=== PATIENT | male | born 1940 | race Caucasian/White ===

== ENCOUNTER 2024-11-05 13:40 | Outpatient (CLI) | payer MEDICARE, SELFPAY ==
--- OUTSIDE RECORDS SUMMARY | 2024-11-05 13:43 | XMS_ITS | Encounter Summary ---
Author Organization [facility] Address [id number] [place] [address] Care Team Providers Care General Dentist Name Role Phone Unavailable Primary Care Provider Unavailabl e Encounter Details Date Type Department Care Team (Late st Contact Info) Description 11/05/2024 1:00 PM CDT Office Visit [facility] Oncology and Hematology - [place] [address] [facility] [address] [place] [address] Teddy Foy MD [address] [facility] [address] [place] [address] Lymphocytosis (Primary Dx) Social History Tobacco Use Types Packs/Day Years Used Date Smoking Tobacco: Never Smokeless Tobacco: Never Tobacco Cessation:Counseling Given: Not Answered Alcohol Use Standard Drinks/Week Comments Yes 0 (1 standard drink = 0.6 oz pur e alcohol) occasional Sex and Gender Information Value Date Recorded Sex Assigned at Not on file Legal Sex Male 1:36 PM CDT Gender Identity Not on file Sexual Orientation Not on file documented as of this encounter Last Filed Vital Signs Vital Sign Reading Time Taken Comments Blood Pressure 116/69 11/05/2024 1:03 PM CDT Pulse 58 11/05/2024 1:03 PM CDT Temperature 36.8 C (98.3 F) 11/05/2024 1:03 PM CDT Respiratory Rate 15 11/05/2024 1:03 PM CDT Oxygen Saturation 91% 11/05/2024 1:03 PM CDT Inhaled Oxygen Concentration - - Weight 117.8 kg (259 lb 12.8 oz) 11/05/2024 1:03 PM CDT Height 177.8 cm (5' 10) 11/05/2024 1:03 PM CDT Body Mass Index 37.28 11/05/2024 1:03 PM CDT documented in this encounter Plan of Treatment Upcoming Encounters Date Type Department Care Team (Late st Contact Info) Description 11/18/2024 4:30 PM CDT Telephone Check Up [facility] Oncology and Hematology - [place] [address] [facility] [address] [place] [address] Teddy Foy MD [address] [facility] [address] [place] [address] Scheduled Orders Name Type Priority Associated Diagnoses Orde r Schedule CBC WITH DIFFERENTIAL Lab Stat Lymphocytosis Expected: 11/05/2024, Expires: 11/05/2025 COMPREHENSIVE METABOLIC PANEL Lab Stat Lymphocytosis Expected: 11/05/2024, Expires: 11/05/2025 FLOW CYTOMETRY PANEL Lab Routine Lymphocytosis Expected: 11/05/2024, Expires: 11/05/2025 LACTATE DEHYDROGENASE Lab Routine Lymphocytosis Expected: 11/05/2024, Expires: 11/05/2025 documented as of this encounter Visit Diagnoses Diagnosis Lymphocytosis- Primary Lymphocytosis (symptomatic) documented in this encounter
--- OUTSIDE RECORDS SUMMARY | 2024-11-05 13:43 | XMS_ITS | Clinical Summary ---
Author Organization [facility] [address] [place] [address] Care Team Providers Care Ammunition Supervisor Name Role Phone Young Nieto MD Primary Care Provider [phone] Allergies No known active allergies Medications allopurinoL (ZYLOPRIM) 300 mg tablet 07/09/2021 Active labetaloL (NORMODYNE,TRAND ATE) 300 mg tablet 07/09/2021 Active lisinopriL (PRINIVIL,ZESTRI L) 20 mg tablet 07/09/2021 Act maddie metFORMIN (GLUCOPHAGE) 500 mg tablet 07/09/2021 Active simvastatin (ZOCOR) 40 mg tablet 07/09/2021 Active aspirin 81 mg enteric coated tablet Take 81 mg by mouth daily Active Active Problems Problem Noted Date Diagnosed Date Sensorineural hearing loss (SNHL) of both ears 0 07/22/2021 Surgical History Surgery Date Site/Laterality Comments KNEE SURGERY REPLACEMENT TOTAL KNEE ANKLE SURGERY Medical History Medical History Date Comments Allergic rhinitis Diabetes (HCC) Hypertension HL (hearing loss) Tinnitus Family History Medical History Relation Name Comments Cancer Brother Heart disease Brother Heart disease Father Cancer Mother Relation Name Status Comments Brother Father Mother Social History Tobacco Use Types Packs/Day Years Used Date Smoking Tobacco: Former Smokeless Tobacco: Never Personal Safety Answer Date Recorded Getting School Help Needed Not on file 06/15 Sex and Gender Information Value Date Recorded Sex Assigned at Not on file Legal 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 Gender Identity Not on file Sexual Orientation Not on file Obstetrics History Last Filed Vital Signs Vital Sign Reading Time Taken Comments Blood Pressure - - Pulse - - Temperature - - Respiratory Rate 18 07/20/2021 3:13 PM CDT Oxygen Saturation - - Inhaled Oxygen Concentration - - Weight 127.9 kg (282 lb) 07/20/2021 3:13 PM CDT Height 177.8 cm (5' 10) 07/20/2021 3:13 PM CDT Body Mass Index 40.46 07/20/2021 3:13 PM CDT Plan of Treatment Health Maintenance Due Date Last Done Comments Depression Screening 1940 Fall Risk Assessment 1940 DTaP/Tdap/Td Vaccine (1 - Tdap) 1953 Hepatitis B Screening 1960 Zoster Vaccine (1 of 2) 1992 Well Visit 65+ 08/02/2007 Pneumococcal vaccine 65+ (2 of 2 - PPSV23) 01/19/2019 01/19/2018 Covid-19 Vaccine (4 2023-2 5 season) 2023 01/23/2021, 07/04/2020, 06/16/2020 Influenza Vaccine (Season Ended) 2024 02/05/2021, 12/28/2019, 01/20/2019, Additional history exists Insurance R HMO [facility] MED[facility] Address: [facility] [address] [place] [address] Care Teams Ammunition Supervisor Relationship Specialty Start Date End Date Young Nieto MD [address] [place] [id number] PCP - General Family Medicine 07/16/21
--- OUTSIDE RECORDS SUMMARY | 2024-11-05 13:43 | XMS_ITS | Clinical Summary ---
Author Organization [facility] Address [facility] [place] [address] Care Team Providers Care Paper Plate Machine Tender Name Role Phone Unavailable Primary Care Provider Unavailabl e Social History Tobacco Use Types Packs/Day Years Used Date Smoking Tobacco: Never Assessed Sex and Gender Information Value Date Recorded Sex Assigned at Not on file Legal Sex Male 5:30 PM CDT Gender Identity Not on file Sexual Orientation Not on file Plan of Treatment Health Maintenance Due Date Last Done Comments DTaP, Tdap and Td Vaccines ( 1 - Tdap) 1961 Pneumococcal Vaccine: 50+ Ye ars (1 of 1 - PCV) 1992 Zoster Vaccines (1 of 2) 1992 RSV Immunization or 60+ Years (1 - 1-dose 75+ series) 2017 COVID-19 Vaccine ( - 2023-2 5 season) 2023 Meningococcal B Vaccine Aged Out No l onger eligible based on patient's age to complete this topic Meningococcal Vaccine Aged Out No roby khris eligible based on patient's age to complete this topic RSV Immunizations Under 20 Months Aged Out No longer eligible based on patient's age to complete this topic
--- OUTSIDE RECORDS SUMMARY | 2024-11-05 13:43 | XMS_ITS | Continuity of Care Document ---
Author Organization [facility] Address [address] [place] [address] Phone Care Team Providers Care Sole Trimmer Name Role Phone Nishant Louis MD, MD Unavailable Unavailable Allergies, Adverse Reactions, Alerts Substance Reaction Status Criticality No Known Allergies Active No Inform ation Medications Medication Instructions Dosage Effective Dates (start - stop) Status Comments allopurinol 300 mg tablet - Active labetalol 300 mg tablet - Active lisinopril 20 mg tablet - Active metformin 500 mg tablet - Active simvastatin 40 mg tablet - Active doxycycline hyclate 100 mg capsule TAKE 1 CAPSULE BY MOUTH TWICE DAILY FOR 10 DAYS - Active meloxicam 15 mg tablet TAKE 1 TABLET BY MOUTH DAILY - Active Procedures Procedure Date X-ray exam knee, 4+ views Office/outpatient visit,lizandro lemon 2024 Asp/inject major joint or bursa w/o US g uidance Kenalog 40mg/mL Advance Directives Directive Yes / No Effective Date File Name No Information Encounters Encounter Description Practice Location Reason(s) For Visit Diagnoses Date Provider Providers Copied on Encounter Office/outpat ient visit,lizandro lemon [facility], [address], [place], [place], [id number], [place] tel:[phone] [facility] Left Knee Havinh Troublewalking And Puttig Weight On It (chief complaint) Pain in left knee Heriberto Dillard. [address] [facility] [address], [address], [place], [address], [place]. tel: [phone] Referring Provider: Nishant Louis MD V, [address] [facility] [address], [place], [address]. tel:[phone] Family History Family Member Type Diagnosis Age At Onset Mother Problem (finding) Cancer, unknown Brother Problem (finding) Heart Disease Father Problem (finding) Hypertension Father Problem (finding) Diabetes Payers Payer name Insurance type Covered republican ID Authoriza tion(s) [facility] Medicare Advantage O PPO CI [id number] Social History Type Description Quantity Date Captured Comments Alcohol Use Details Unknown Caffeine Use Details Unknown Tobacco Use Status Smoking Status Former smoker Non-Smoking Tobacco Use Details : No Details Available : No Details Available : No Details Available : No Details Available Sex Male Gender Identity Male Vital Signs Date / Time: Height Weight BMI Pulse Rate Blood Pressure Temperature Respiratory Rate Body Surface Area Head Circumference Head Circ. Percentile Wt./Angel. Percentile BMI percentile Pulse Ox Inhaled Ox 3:43 PM 70.00 in 116.120 kg (256.00 lbs) 36.7 3 kg/m eter (2) Chief Complaint And Reason For Visit From encounter dated '10/06/2024 15:15'. Left Knee Havinh Troublewalking And Puttig Weight On It (chief complaint) Reason For Referral Reason For Referral No Information Plan Of Treatment Date Type Action Status Referral Ordered: X-ray exam knee, 4+ views LT ordered History Of Present Illness Encounter Date Complaint History Of Prese nt Illness Left Knee Havinh Tro ublewalking And Puttig Weight On It Functional Status Date Functional Assessmen t No Information Instructions Date Instruction Additional Infor mation No Information Assessments Type Assessment Date assessment Pain in left knee Patient Care Teams Name Effective Dates (start - stop) Status Members No Information
--- OUTSIDE RECORDS SUMMARY | 2024-11-05 13:43 | XMS_ITS | Referral Summary ---
Author Organization [facility] [address] Address [address] [place] [address] Care Team Providers Care Field Support Engineer Name Role Phone Young Nieto MD Primary Care Provider [phone] Allergies No known active allergies Medications allopurinoL [...] loss (SNHL) of both ears 0 07/22/2021 Social History Tobacco Use Types Packs/Day Years Used Date Smoking Tobacco: Former Smokeless Tobacco: Never Personal Safety Answer Date Recorded Getting School Help Needed Not on file 06/15 Sex and Gender Information Value Date Recorded Sex Assigned at Not on file 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
--- OUTSIDE RECORDS SUMMARY | 2024-11-05 13:43 | XMS_ITS | Clinical Summary ---
Author Organization [facility] Address [address] [facility] [place] [address] Care Team Providers Care Sprinkler Helper Name Role Phone Unavailable Primary Care Provider Unavailabl e Allergies No known active allergies Medications metFORMIN (GLUCOPHAGE) 500 mg tablet 09/01/2024 Active lisinopriL (PRINIVIL) 20 mg tablet 09/01/2024 Active allopurinoL (ZYLOPRIM) 300 mg tablet 09/01/2024 Active simvastatin (ZOCOR) 40 mg tablet 09/01/2024 Active labetaloL (NORMODYNE) 300 mg tablet 09/01/2024 Active aspirin (ECOTRIN EC) 81 mg Tablet, Delayed Release (E.C.) Take 81 mg by mouth daily. Active Active Problems No known active problems Encounters Date Type Department Care Team Description 11/05/2024 1:00 PM CDT Office Visit [facility] Oncology and Hematology - [place] [address] [id number] Teddy Foy MD Lymphocytosis (Primary Dx) from Last 3 Months Family History Medical History Relation Name Comments Heart Disease Brother 1 Cancer - Other Brother 2 No Known Problems Brother 3 No Known Problems Brother 4 No Known Problems Child 1 No Known Problems Child 2 Diabetes Father Ovarian Cancer Mother No Known Problems Sister 1 No Known Problems Sister 2 No Known Problems Sister 3 No Known Problems Sister 4 Relation Name Status Comments Brother 1 Brother 2 Brother 3 Alive Brother 4 Alive Child 1 Alive Child 2 Alive Father Mother Sister 1 Alive Sister 2 Alive Sister 3 Alive Sister 4 Alive Social History Tobacco Use Types Packs/Day Years [...] Mass Index 37.28 11/05/2024 1:03 PM CDT Plan of Treatment Upcoming Encounters Date Type Department Care Team (Late st Contact Info) Description 11/18/2024 4:30 PM CDT Telephone Check Up [facility] Oncology and Hematology - [place] [address] [facility] [address] [place] [address] Teddy Foy MD [address] [facility] [address] [place] [address] Health Maintenance Due Date Last Done Comments DTAP/TDAP/TD VACCINES (1 - Tdap) 1961 PNEUMOCOCCAL VACCINE 50+ YEARS (1 of 1 - PCV) 08/01/18 93 ZOSTER VACCINE (1 of 2) 1992 RSV VACCINE (60+ or ) (1 - 1-dose 75+ series) 2017 [place] ([place]) Prev entative Visit/Annual Wellness Visit 04/21/2024 INFLUENZA VACCINE (#1) 2024 Insurance [facility] [id number] [place] [address]
--- NOTE | 2024-11-05 13:54 | CY_PTH ---
PATIENT: Alvaro Fair LOC: ANHLAB #:[id number] AGE/SX: 84/M ROOM: RE11/05/[address]: Teddy Foy MD : 1940 BED: DIS: 11/05/2024 SPEC #: [id number] RECD: 11/08/24 06:44 STATUS: ANGEL REQ #: [id number] DEMOND: 11/05/24 13:[address]: Teddy Foy DEPT: [facility] Cytology RECD BY: Nery Flores ENTERED: 11/08/24 06:44 SP TYPE: Cytology OTHR DR: Young Nieto MD Tissues: A - Flow Procedures: Flow Cytometry
[2024-11-05 13:58] LABS: Hematocrit 37.2 % (42.0-52.0); Hemoglobin 11.8 g/dL (14.0-18.0); Immature Granulocyte Percent A 0.4 % (0-0.5); Lymphocytes Absolute Auto 14.75 K/mm3 (0.9-3.2); Mean Corpuscular HGB Conc 31.7 g/dl (32-36); Mean Corpuscular Hemoglobin 30.6 pg (26-34); Mean Corpuscular Volume 96.4 fl (80-100); Nucleated Red Blood Cells Absolute Auto 0.000 K/mm3 (0.0-0.012); Nucleated Red Blood Cells Perc 0.0 % (0.0-0.2); Platelet Count Result 195 k/mm3 (150-375); Red Blood Count 3.86 M/mm3 (4.6-6.20); White Blood Count 21.3 K/mm3 (4.5-10.0)
[2024-11-05 14:02] LABS: Schistocytes None Seen
[2024-11-05 16:38] LABS: Alanine Aminotransferase 18 U/L (6-50); Albumin Level 4.4 g/dL (3.5-5.1); Alkaline Phosphatase 75 U/L (38-126); Anion Gap 8 mmol/L (4-12); Aspartate Amino Transferase 25 U/L (17-59); Bilirubin,Total 0.5 mg/dL (0.2-1.3); Blood Urea Nitrogen 20 mg/dL (9-20); Calcium 9.5 mg/dL (8.4-10.2); Carbon Dioxide 27 mmol/L (22-30); Chloride 102 mmol/L (98-107); Estimated Glomerular Filt Rate > 60; Glucose 94 mg/dL (65-110); Potassium 4.6 mmol/L (3.4-5.0); Sodium 137 mmol/L (137-145); Total Protein 7.1 g/dL (6.3-8.2)
== END 2024-11-05 13:41 | disposition home or self-care (01) ==
LOC: ANHLAB 13:42
PROVIDERS: PCP Family Medicine; Visit Provider Internal Medicine Hematology & Oncology
DX: D72.820 Lymphocytosis (symptomatic) (principal)
CPT/HCPCS: 36415; 80053; 83615; 85025; 88184

== ENCOUNTER 2024-11-17 10:10 | Outpatient (CLI) | payer MEDICARE, SELFPAY ==
--- OUTSIDE RECORDS SUMMARY | 2024-11-17 10:34 | XMS_ITS | Clinical Summary ---
Author Organization [facility] [address] Address [address] [place] [address] Care Team Providers Care Counter Helper Name Role Phone Young Nieto MD Primary Care Provider [phone] Allergies No known active allergies Medications allopurinoL [...] on file Legal Sex Male 3:20 PM FIRST HELPER Gender Identity Not on file Sexual Orientation [...] season) 2023 01/23/2021, 07/04/2020, 06/16/2020 Influenza Vaccine (#1) 2024 , 12/28/2019, 01/20/2019, Additional history exists Insurance R HMO REF Care Teams Counter Helper Relationship Specialty Start Date End Date Young Nieto MD [address] [place] [id number] PCP - General Family Medicine 07/16/21
--- OUTSIDE RECORDS SUMMARY | 2024-11-17 10:34 | XMS_ITS | Referral Summary ---
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
--- OUTSIDE RECORDS SUMMARY | 2024-11-17 10:34 | XMS_ITS | Clinical Summary ---
Author Organization [facility] Demetrio heaton Jenny Address [address] [place] [address] Care Team Providers Care Small Arms Artillery Repairer Name Role Phone Unavailable Primary Care Provider [...] Encounters Date Type Department Care Team Description 11/10/2024 Orders Only [facility] Oncology and Hematology - [place] [address] [place] [address] Teddy Foy MD 11/09/2024 External Device Data STL ABSTRACTION Provider, Abstract 11/09/2024 External Device Data STL ABSTRACTION Provider, Abstract 11/09/2024 External Device Data STL ABSTRACTION Provider, Abstract 11/09/2024 Orders Only [facility] Oncology and Hematology - [place] [address] [place] [address] Teddy Foy MD 11/05/2024 1:00 PM CDT Office Visit [facility] Oncology and Hematology - [place] [address] [place] [address] Teddy Foy MD Lymphocytosis (Primary Dx); Chronic anemia from Last 3 Months Family History Medical [...] 11/18/2024 4:30 PM CDT Telephone Check Up [facility] Oncology and Hematology - [place] [address] [place] [address] Teddy Foy MD [address] [facility] [address] [place] [address] Health Maintenance Due Date Last Done Comments DIABETES ANNUAL FOOT EXAM 1960 DIABETES ANNUAL RETINAL EXAM 1960 DIABETES HBA1C Q 6 MONTHS 1960 DIABETES MICROALBUMIN ANNUAL SCREEN 1960 LDL CHOLESTEROL ANNUAL 1960 DTAP/TDAP/TD VACCINES (1 - Tdap) 1961 PNEUMOCOCCAL VACCINE 50+ YEARS (1 of 2 - PCV) 08/01/18 62 ZOSTER VACCINE (1 of 2) 1992 RSV VACCINE (60+ or ) (1 - 1-dose 75+ series) 2017 [place]) Prev entative Visit/Annual Wellness Visit 04/21/2024 INFLUENZA VACCINE (#1) 2024 Procedures Procedure Name Priority Date/Time Associated Diagnosis Comments FLOW CYTOMETRY REPORT Routine 11/08/2024 9:28 AM CDT CBC WITH DIFFERENTIAL Routine 11/05/2024 4:13 PM CDT COMPREHENSIVE METABOLIC PANEL Routine 11/05/2024 7:51 AM CDT COMPREHENSIVE METABOLIC PANEL Routine 11/05/2024 7:50 AM CDT from Last 3 Months Results * FLOW CYTOMETRY REPORT (11/08/2024 9:28 AM CDT) us Teddy Foy MD PATHOLOGY/CYTOLOGY ORDERABLES F inal Result * CBC WITH DIFFERENTIAL (11/05/2024 4:13 PM CDT) Blood us Teddy Foy MD HEMATOLOGY ORDERABLES Final Res ult * COMPREHENSIVE METABOLIC PANEL (11/05/2024 7:51 AM CDT) Only the most recent of2 resultswithin the time period is included. Blood us Teddy Foy MD CHEMISTRY ORDERABLES Final Resu lt from Last 3 Months Insurance [facility] [id number]
--- OUTSIDE RECORDS SUMMARY | 2024-11-17 10:34 | XMS_ITS | Continuity of Care Document ---
Author Organization [facility] Address [address] [place] [address] Phone Care Team Providers Care Image Consultant Name Role Phone Nishant Louis MD, MD [...] Encounter Office/outpat ient visit,lizandro lemon [facility], [address], [place], [place], [id number], [place] tel:[phone] [facility] Left Knee Havinh Troublewalking And Puttig Weight On It (chief complaint) Pain in left knee Heriberto Dillard. [address] [facility], [address], [place], [address], [place]. tel: [phone] Referring Provider: Nishant Louis MD V, [address] [facility] [address], [place], [address]. tel:[phone] Family History Family Member Type Diagnosis Age At Onset Mother Problem (finding) Cancer, unknown Brother Problem (finding) Heart Disease Father Problem (finding) Hypertension Father Problem (finding) Diabetes Payers Payer name Insurance type Covered democrat ID Authoriza tion(s) [facility] Medicare Advantage O PPO CI [id number] Social History Type Description Quantity Date Captured [...]
--- OUTSIDE RECORDS SUMMARY | 2024-11-17 10:34 | XMS_ITS | Clinical Summary ---
Author Organization [facility] Address [facility] [place] [address] Care Team Providers Care Ui Engineer Name Role Phone Unavailable Primary Care Provider [...]
--- OUTSIDE RECORDS SUMMARY | 2024-11-17 10:34 | XMS_ITS | Encounter Summary ---
Author Organization [facility] Address [address] [place] [address] Care Team Providers Care Curriculum Developer Name Role Phone Unavailable Primary Care Provider Unavailabl e Encounter Details Date Type Department Care Team (Late Contact Info) Description 11/10/2024 Orders Only [facility] Oncology and Hematology [facility] [address] [place] [address] Teddy Foy MD [address] [place] [address] [address] [place] [address] Social History Tobacco Use Types Packs/Day Years Used Date Smoking Tobacco: Never Smokeless Tobacco: Never Alcohol Use Standard Drinks/Week Comments Yes 0 (1 standard drink = 0.6 oz pur e alcohol) occasional Sex and Gender Information Value Date Recorded Sex Assigned at Not on file Legal Sex Male 1:36 PM CDT Gender Identity Not on file Sexual Orientation Not on file documented as of this encounter Plan of Treatment Upcoming Encounters Date Type Department Care Team (Late st Contact Info) Description 11/18/2024 4:30 PM CDT Telephone Check Up [facility] Oncology and Hematology [facility] [address] [place] [address] Teddy Foy MD [address] [place] [address] documented as of this encounter Procedures Procedure Name Priority Date/Time Associated Diagnosis Comments FLOW CYTOMETRY REPORT Routine 11/08/2024 9:28 AM CDT COMPREHENSIVE METABOLIC PANEL Routine 11/05/2024 7:51 AM CDT COMPREHENSIVE METABOLIC PANEL Routine 11/05/2024 7:50 AM CDT documented in this encounter Results * FLOW CYTOMETRY REPORT (11/08/2024 9:28 AM CDT) Result Pavan Foy MD PATHOLOGY/CYTOLOGY ORDERABLES F inal Result * COMPREHENSIVE METABOLIC PANEL (11/05/2024 7:51 AM CDT) Blood us Teddy Foy MD CHEMISTRY ORDERABLES Final Resu lt * COMPREHENSIVE METABOLIC PANEL (11/05/2024 7:50 AM CDT) Blood Result Pavan Foy MD CHEMISTRY ORDERABLES Final Resu lt documented in this encounter Visit Diagnoses Not on filedocumented in this encounter
[2024-11-17 16:42] LABS: Iron 83 ug/dL (49-181)
[2024-11-17 16:59] LABS: Percent Iron Saturation 23 % (20-50)
[2024-11-17 17:23] LABS: Ferritin 32.50 ng/mL (11.1-264)
[2024-11-17 17:32] LABS: Vitamin B12 692.0 pg/mL (239-931)
== END 2024-11-17 10:11 | disposition home or self-care (01) ==
PROVIDERS: PCP Family Medicine; Visit Provider Internal Medicine Hematology & Oncology
DX: D64.9 Anemia, unspecified (principal)
CPT/HCPCS: 36415; 82607; 82728; 82746; 83540; 83550

== ENCOUNTER 2025-03-23 13:02 | Outpatient (CLI) | payer MEDICARE, SELFPAY ==
--- OUTSIDE RECORDS SUMMARY | 2025-03-23 13:00 | XMS_ITS | Encounter Summary ---
Author Organization [facility] [employer] [facility] Address [address] [place] [address] Care Team Providers Care Block Trader Name Role Phone Unavailable Primary Care Provider Unavailabl e Encounter Details Date Type Department Care Team (Late st Contact Info) Description 03/23/2025 1:00 PM DIE CAST ENGINEER Office Visit [facility] Oncology and Hematology - Wes [address] [facility] [address] [place] [address] Teddy Foy MD [address] [facility] [address] [place] [address] Chronic anemia (Primary Dx) Social History Tobacco Use Types [...] Sign Reading Time Taken Comments Blood Pressure 139/82 03/23/2025 1:20 PM DIE CAST ENGINEER Pulse 63 03/23/2025 1:20 PM DIE CAST ENGINEER Temperature 36.2 C (97.2 F) 03/23/2025 1:20 PM DIE CAST ENGINEER Respiratory Rate 16 03/23/2025 1:20 PM DIE CAST ENGINEER Oxygen Saturation 93% 03/23/2025 1:20 PM DIE CAST ENGINEER Inhaled Oxygen Concentration - - Weight 115.6 kg (254 lb 12.8 oz) 03/23/2025 1:20 PM DIE CAST ENGINEER Height - - Body Mass Index 36.56 11/05/2024 1:03 PM CDT documented in this encounter Plan of Treatment Upcoming Encounters Date Type Department Care Team (Late st Contact Info) Description 07/27/2025 1:15 PM CDT Office Visit [facility] Oncology and Hematology - Wes [address] [facility] [address] [place] [address] Teddy Foy MD [address] [facility] [address] [place] [address] Scheduled Orders Name Type Priority Associated Diagnoses Orde r Schedule CBC WITH DIFFERENTIAL Lab Stat Chronic anemia Expected: 07/22/2025, Expires: 10/20/2025 COMPREHENSIVE METABOLIC PANEL Lab Stat Chronic anemia Expected: 07/22/2025, Expires: 10/20/2025 FERRITIN Lab Routine Chronic anemia Expected: 07/22/2025, Expires: 10/20/2025 IRON, TIBC, AND PERCENT SATURATION Lab Routine Chronic anemia Expected: 07/22/2025, Expires: 10/20/2025 VITAMIN B12 AND FOLATE Lab Routine Chronic anemia Expected: 07/22/2025, Expires: 10/20/2025 TRANSFERRIN RECEPTOR TFR SOLUBLE Lab Routine Chronic anemia Expected: 07/22/2025, Expires: 10/20/2025 documented as of this encounter Visit Diagnoses Diagnosis Chronic anemia- Primary Anemia, unspecified documented in this encounter
[2025-03-23 13:18] LABS: Hematocrit 36.1 % (42.0-52.0); Hemoglobin 11.4 g/dL (14.0-18.0); Immature Granulocyte Percent A 0.3 % (0-0.5); Lymphocytes Absolute Auto 17.95 K/mm3 (0.9-3.2); Mean Corpuscular HGB Conc 31.6 g/dl (32-36); Mean Corpuscular Hemoglobin 30.6 pg (26-34); Mean Corpuscular Volume 97.0 fl (80-100); Nucleated Red Blood Cells Absolute Auto 0.000 K/mm3 (0.0-0.012); Nucleated Red Blood Cells Perc 0.0 % (0.0-0.2); Platelet Count Result 171 k/mm3 (150-375); Red Blood Count 3.72 M/mm3 (4.6-6.20); White Blood Count 25.2 K/mm3 (4.5-10.0)
[2025-03-23 13:22] LABS: Blood Urea Nitrogen 20 mg/dL (8-26); Carbon Dioxide 27 mmol/L (22-30); Chloride 103 mmol/L (98-109); Estimated Glomerular Filt Rate 58; Glucose 96 mg/dL (70-105); Ionized Calcium (POC) 1.18 mmol/L (1.11-1.31); Potassium 4.1 mmol/L (3.5-4.9); Sodium 139 mmol/L (138-146)
[2025-03-23 13:22] LABS: Schistocytes None Seen
[2025-03-23 13:50] LABS: Alanine Aminotransferase 17 U/L (6-50); Albumin Level 4.5 g/dL (3.5-5.1); Alkaline Phosphatase 81 U/L (38-126); Anion Gap 5 mmol/L (4-12); Aspartate Amino Transferase 22 U/L (17-59); Bilirubin,Total 0.5 mg/dL (0.2-1.3); Blood Urea Nitrogen 21 mg/dL (9-20); Calcium 9.2 mg/dL (8.4-10.2); Carbon Dioxide 28 mmol/L (22-30); Chloride 103 mmol/L (98-107); Estimated Glomerular Filt Rate > 60; Glucose 93 mg/dL (65-110); Potassium 4.3 mmol/L (3.4-5.0); Sodium 136 mmol/L (137-145); Total Protein 7.0 g/dL (6.3-8.2)
--- OUTSIDE RECORDS SUMMARY | 2025-03-23 14:10 | XMS_ITS | Clinical Summary ---
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 Office Visit [facility] Oncology and Hematology - [place] [address] [address] Teddy Foy MD Chronic anemia (Primary Dx) 03/22/2025 External Device Data STL ABSTRACTION Provider, Abstract 02/09/2025 External Device Data STL ABSTRACTION Provider, Abstract 02/08/2025 External Device Data STL ABSTRACTION Provider, Abstract 01/25/2025 External Device Data STL ABSTRACTION Provider, Abstract 01/04/2025 External Device Data STL ABSTRACTION Provider, Abstract 01/04/2025 External Device Data STL ABSTRACTION Provider, Abstract 12/22/2024 External Device Data STL ABSTRACTION Provider, Abstract from Last 3 Months Family History Medical [...] Comments Blood Pressure 139/82 03/23/2025 1:20 PM TANGLED YARN SPOOL STRAIGHTENER Pulse 63 03/23/2025 1:20 PM TANGLED YARN SPOOL STRAIGHTENER Temperature 36.2 C (97.2 F) 03/23/2025 1:20 PM TANGLED YARN SPOOL STRAIGHTENER Respiratory Rate 16 03/23/2025 1:20 PM TANGLED YARN SPOOL STRAIGHTENER Oxygen Saturation 93% 03/23/2025 1:20 PM TANGLED YARN SPOOL STRAIGHTENER Inhaled Oxygen Concentration - - Weight 115.6 kg (254 lb 12.8 oz) 03/23/2025 1:20 PM TANGLED YARN SPOOL STRAIGHTENER Height 177.8 cm (5' 10) 11/05/2024 1:03 PM CDT Body Mass Index 36.56 11/05/2024 1:03 PM CDT Plan of Treatment Upcoming Encounters Date Type Department Care Team (Late st Contact Info) Description 07/27/2025 1:15 PM CDT Office Visit [facility] Oncology and Hematology - Wes [address] [facility] [address] [place] [address] Teddy Foy MD [address] [facility] [address] [place] [address] Health Maintenance Due Date Last [...] Visit 04/21/2024 INFLUENZA VACCINE (#1) 2024 [place] [address] [facility] [id number]
--- OUTSIDE RECORDS SUMMARY | 2025-03-23 14:10 | XMS_ITS | Clinical Summary ---
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
--- OUTSIDE RECORDS SUMMARY | 2025-03-23 14:10 | XMS_ITS | Clinical Summary ---
Author Organization [facility] Address [facility] [place] [address] Care Team Providers Care Hand Hide Stretcher Name Role Phone Unavailable Primary Care Provider [...] 75+ series) 2017 COVID-19 Vaccine ( - 2024-2 6 season) 2024 Influenza Adult (#1) 2025 Hepatitis A Vaccines Aged Out No long er eligible based on patient's age to complete this topic Meningococcal B Vaccine Aged Out No l onger eligible based on patient's age to complete this topic Meningococcal Vaccine Aged Out No roby khris eligible based on patient's age to complete this topic RSV Immunizations Under 20 Months Aged Out No longer eligible based on patient's age to complete this topic
--- OUTSIDE RECORDS SUMMARY | 2025-03-23 14:10 | XMS_ITS | Encounter Summary ---
Author Organization [facility] Address [address] [place] [address] Care Team Providers Care Bulb Assembler Name Role Phone Unavailable Primary Care Provider Unavailabl e Encounter Details Date Type Department Care Team (Late st Contact Info) Description 03/22/2025 External Device Data ST[facility] ABSTRACTION Provider, Abstract NO ADDRESS ON FILE Social History Tobacco Use Types Packs/Day Years [...] Description 07/27/2025 1:15 PM CDT Office Visit [facility] Oncology and Hematology - [place] [address] [place] [address] [facility] [address] [place] [address] Teddy Foy MD [address] [facility] [address] [place] [address] documented as of this encounter Visit Diagnoses Not on filedocumented in this encounter
== END 2025-03-23 13:03 | disposition home or self-care (01) ==
LOC: ANHLAB 13:03
PROVIDERS: PCP Family Medicine; Visit Provider Internal Medicine Hematology & Oncology
DX: D64.9 Anemia, unspecified (principal)
CPT/HCPCS: 36415; 80047; 80053; 83615; 85025